=== PATIENT | male | born 1965 | race Caucasian/White ===

== ENCOUNTER 2024-10-26 15:25 | Inpatient (IN) | payer MEDICAID, OTHER ==
[~2024-10-26] VITALS: Ht 170.2 cm; Wt 71.7 kg
[2024-10-26] MEDS: IV NS 0.9% 1,000 ML BAG IV ONE (16:09)
[2024-10-26 16:21] LABS: BASOPHILS % (AUTO) 0.1 % (0.0-2.0); EOSINOPHILS % (AUTO) 0.1 % (0.0-6.0); HEMATOCRIT 33 % (39-51); HEMOGLOBIN 11.1 g/dL (13.5-17.5); LYMPHOCYTES # (AUTO) 0.4 K/uL (0.8-4.8); LYMPHOCYTES % (AUTO) 2.6 % (20.0-44.0); MEAN CORPUSCULAR HEMOGLOBIN 31 PG (26.0-33.0); MEAN CORPUSCULAR HGB CONC 34 g/dl (31.0-36.0); MEAN CORPUSCULAR VOLUME 93 fL (80-96); MONOCYTES # (AUTO) 1.1 K/uL (0.1-1.30); MONOCYTES % (AUTO) 6.4 % (2.0-12.0); NEUTROPHILS # (AUTO) 15.3 K/uL (1.8-8.9); NEUTROPHILS % (AUTO) 90.8 % (43.0-81.0); PLATELET COUNT (AUTO) 243 K/uL (150-450); RED BLOOD CELL COUNT(AUTO) 3.54 MIL/uL (4.5-6.0); RED CELL DISTRIBUTION WIDTH 15.6 % (11.5-15.0); WHITE BLOOD COUNT (AUTO) 16.8 K/uL (4.3-11.0)
[2024-10-26 16:34] LABS: CREATININE 1.5 mg/dL (0.6-1.3); POTASSIUM 3.2 mmol/L (3.5-5.1)
[2024-10-26] MEDS ORDERED: MULT-1275 PO (18:13)
[2024-10-26] MEDS ORDERED: TAMS-12 PO (18:13)
[2024-10-26] MEDS ORDERED: RISP1TAB97 PO (18:13)
[2024-10-26] MEDS ORDERED: APIX5TAB PO (18:13)
[2024-10-26] MEDS ORDERED: ASPI-1169 PO (18:13)
[2024-10-26] MEDS ORDERED: PANT40TA49 PO (18:13)
[2024-10-26] MEDS ORDERED: GABA-532 PO (18:13)
[2024-10-26] MEDS ORDERED: HALO2ORA3 PO (18:13)
[2024-10-26] MEDS ORDERED: ATOR40TA PO (18:13)
[2024-10-26] MEDS ORDERED: LORA-259 PO (18:13)
[2024-10-26] MEDS ORDERED: ACET325T53 PO (18:13)
[2024-10-26] MEDS ORDERED: FOLI0.8T3 PO (18:13)
[2024-10-26] MEDS ORDERED: QUET50TA PO (18:13)
[2024-10-26] MEDS ORDERED: FURO40TA5 PO (18:13)
[2024-10-26] MEDS ORDERED: CEFTRIAXONE 1GM BAG (ER ONLY) 50 ML IV ONE (18:59)
[2024-10-26] MEDS: CEFTRIAXONE 1GM BAG (ER ONLY) 50 ML IV ONE (19:05)
[2024-10-26 19:24] LABS: ALBUMIN 3.1 g/dL (3.4-5.0); BILIRUBIN,DIRECT 0.2 mg/dL (0.0-0.2); BILIRUBIN,TOTAL 0.4 mg/dL (0.2-1.0); TOTAL PROTEIN, SERUM 8.2 g/dL (6.4-8.2)
[2024-10-26 19:28] LABS: LACTIC ACID 1.3 mmol/L (0.4-2.0)
[2024-10-26] MEDS ORDERED: LIDOCAINE 2% JEL UROJET 10 ML MM ONE (19:47)
[2024-10-26 21:23] LABS: APPEARANCE,URINE CLOUDY (CLEAR); COLOR,URINE BROWN (YELLOW)
[2024-10-26 22:17] LABS: RBC,URINE TOO NUMEROUS TO COUN /HPF (0-2)
[2024-10-26 22:18] LABS: BACTERIA,URINE None seen /HPF (None Seen); SQUAMOUS EPITHELIAL CELL,UR 0-2 /HPF (None Seen); WBC,URINE 0-2 /HPF (0-3)
[2024-10-26] MEDS: IV LR 1000 ML 1,000 ML BAG IV ONE (22:40)
[2024-10-26] MEDS ORDERED: QUETIAPINE FUMARATE 25 MG TABLET PO PRN (23:00)
[2024-10-26] MEDS ORDERED: Z GUARD REMEDY 4 OZ OINT TP PRN (23:00)
[2024-10-26] MEDS ORDERED: ONDANSETRON HCL/PF 4 MG/2 ML VIAL IVP PRN (23:00)
[2024-10-26] MEDS ORDERED: CEFEPIME 1 GM VIAL ONE (23:17)
[2024-10-26] MEDS ORDERED: DOXYCYCLINE 100 MG VIAL ONE (23:17)
[2024-10-26] MEDS: POTASSIUM CHLORIDE 10 MEQ TABLET.SA PO ONE (23:26)
[2024-10-26] MEDS ORDERED: HALOPERIDOL ORAL CONC 2 MG/ML BOTTLE PO PRN (23:30)
[2024-10-26] MEDS: CEFEPIME 2 GM in IV D5W 100 ML IV SCH (23:42)
[2024-10-27] MEDS: VANCOMYCIN 1 GM in IV NS 0.9% 250 ML IV ONE
[2024-10-27] MEDS: IV NS 0.9% 1,000 ML IV PRN (00:10)
[2024-10-27 01:03] LABS: BAND % (MANUAL) 1 % (0.0-5.0); LYMPHOCYTES % (MANUAL) 4 % (16-48); MONOCYTES % (MANUAL) 8 % (0-11.0); NEUTROPHILS % (MANUAL) 87 (42-76); PLATELET ESTIMATE ADEQUATE
[2024-10-27] MEDS: DOXYCYCLINE HYCLATE (100 MG) 100 MG TABLET PO SCH (01:09)
[2024-10-27] MEDS: VANCOMYCIN 1 GM /D5W 250 ML PB IV ONE (01:48)
[2024-10-27] MEDS ORDERED: HALOPERIDOL LACTATE 10 MG/5 ML UDC PO PRN (07:00)
[2024-10-27] MEDS: PANTOPRAZOLE 40 MG TABLET.DR PO SCH (07:39)
[2024-10-27] MEDS: MULTIVITAMINS,THERAGRAN 1 UDTAB TABLET PO SCH (08:31)
[2024-10-27] MEDS: TAMSULOSIN 0.4 MG CAP.SR.24H PO SCH (08:31)
[2024-10-27] MEDS: NICOTINE PATCH (7MG) 7 MG PATCH.TD24 TD SCH (08:31)
[2024-10-27] MEDS: risperiDONE 1 MG TABLET PO SCH (08:31)
[2024-10-27] MEDS: GABAPENTIN 100 MG CAPSULE PO SCH (08:32)
[2024-10-27] MEDS: FOLIC ACID 1 MG TABLET PO SCH (08:32)
[2024-10-27] MEDS: CEFEPIME 2 GM in IV D5W 100 ML IV SCH (11:02)
[2024-10-27 12:10] VITALS: BP 89/60; TEMP 99.2; O2SAT 95
[2024-10-27] MEDS: VANCOMYCIN 750 MG in IV D5W 250 ML IV SCH (13:22)
[2024-10-27] MEDS: SOD FERRIC GLUC 125 MG in IV NS 0.9% 100 ML IV SCH (14:30)
[2024-10-27 15:37] LABS: BASOPHILS % (AUTO) 0.3 % (0.0-2.0); EOSINOPHILS # (AUTO) 0.1 K/uL (0.0-0.7); HEMATOCRIT 29 % (39-51); HEMOGLOBIN 9.9 g/dL (13.5-17.5); LYMPHOCYTES # (AUTO) 0.6 K/uL (0.8-4.8); LYMPHOCYTES % (AUTO) 5.2 % (20.0-44.0); MEAN CORPUSCULAR HEMOGLOBIN 33 PG (26.0-33.0); MEAN CORPUSCULAR HGB CONC 35 g/dl (31.0-36.0); MEAN CORPUSCULAR VOLUME 94 fL (80-96); MONOCYTES # (AUTO) 0.7 K/uL (0.1-1.30); MONOCYTES % (AUTO) 6.4 % (2.0-12.0); NEUTROPHILS # (AUTO) 9.4 K/uL (1.8-8.9); NEUTROPHILS % (AUTO) 87.1 % (43.0-81.0); PLATELET COUNT (AUTO) 171 K/uL (150-450); RED BLOOD CELL COUNT(AUTO) 3.01 MIL/uL (4.5-6.0); RED CELL DISTRIBUTION WIDTH 15.7 % (11.5-15.0); WHITE BLOOD COUNT (AUTO) 10.8 K/uL (4.3-11.0)
[2024-10-27 16:06] LABS: CALCIUM, SERUM 8.2 mg/dL (8.5-10.1); CREATININE 1.5 mg/dL (0.6-1.3); POTASSIUM 3.7 mmol/L (3.5-5.1)
[2024-10-27 16:23] VITALS: BP 90/63; TEMP 98.6; O2SAT 94
[2024-10-27 20:00] VITALS: BP 97/56; TEMP 98.1; O2SAT 97
[2024-10-27] MEDS: ATORVASTATIN 40 MG TABLET PO SCH (21:55)
[2024-10-28 07:00] LABS: BASOPHILS # (AUTO) 0.1 K/uL (0.0-0.2); BASOPHILS % (AUTO) 0.6 % (0.0-2.0); EOSINOPHILS # (AUTO) 0.3 K/uL (0.0-0.7); EOSINOPHILS % (AUTO) 3.7 % (0.0-6.0); HEMATOCRIT 27 % (39-51); HEMOGLOBIN 9.2 g/dL (13.5-17.5); LYMPHOCYTES # (AUTO) 0.8 K/uL (0.8-4.8); LYMPHOCYTES % (AUTO) 8.7 % (20.0-44.0); MEAN CORPUSCULAR HEMOGLOBIN 32 PG (26.0-33.0); MEAN CORPUSCULAR HGB CONC 34 g/dl (31.0-36.0); MEAN CORPUSCULAR VOLUME 95 fL (80-96); MONOCYTES % (AUTO) 11.4 % (2.0-12.0); NEUTROPHILS # (AUTO) 6.7 K/uL (1.8-8.9); NEUTROPHILS % (AUTO) 75.6 % (43.0-81.0); PLATELET COUNT (AUTO) 170 K/uL (150-450); RED BLOOD CELL COUNT(AUTO) 2.87 MIL/uL (4.5-6.0); RED CELL DISTRIBUTION WIDTH 15.5 % (11.5-15.0); WHITE BLOOD COUNT (AUTO) 8.9 K/uL (4.3-11.0)
[2024-10-28 07:30] VITALS: BP 101/52; TEMP 99; O2SAT 90
[2024-10-28 07:35] LABS: CALCIUM, SERUM 8.6 mg/dL (8.5-10.1); CREATININE 1.3 mg/dL (0.6-1.3); MAGNESIUM 1.5 mg/dL (1.8-2.4); PHOSPHORUS 3.2 mg/dL (2.5-4.9); POTASSIUM 3.2 mmol/L (3.5-5.1)
[2024-10-28] MEDS: MAGNESIUM OXIDE 400 MG TABLET PO ONE (09:17)
[2024-10-28] MEDS: POTASSIUM CHLORIDE 20 MEQ TAB.PRT.SR PO SCH (10:04)
[2024-10-28] MEDS: THERAHONEY GEL 1.5 OZ TUBE TP SCH (10:04)
[2024-10-28] MEDS ORDERED: HALOPERIDOL DECANOATE IM 100 MG/ML AMPUL IM PRN (23:00)
[2024-10-28] MEDS: HALOPERIDOL LACTATE INJ 5 MG/ML VIAL ONE (23:28)
[2024-10-28] MEDS ORDERED: HALOPERIDOL DECANOATE IM 100 MG/ML AMPUL IM ONE (23:30)
[2024-10-29] MEDS: HALOPERIDOL LACTATE INJ 5 MG/ML VIAL IM ONE (00:10)
[2024-10-29 06:00] VITALS: BP 115/63; O2SAT 97
[2024-10-29] MEDS: risperiDONE 1 MG TABLET PO SCH (12:02)
[2024-10-29 16:00] VITALS: BP 109/74; TEMP 98.2; O2SAT 96
[2024-10-29] MEDS: LORAZEPAM 1 MG TABLET PO PRN (16:27)
[2024-10-29 20:00] VITALS: BP 119/54; TEMP 98.1; O2SAT 94
[2024-10-30] MEDS: ACETAMINOPHEN 325 MG TABLET PO PRN (01:13)
[2024-10-30 06:57] LABS: CALCIUM, SERUM 9.2 mg/dL (8.5-10.1); CREATININE 1.2 mg/dL (0.6-1.3); MAGNESIUM 1.8 mg/dL (1.8-2.4); PHOSPHORUS 4.5 mg/dL (2.5-4.9); POTASSIUM 3.8 mmol/L (3.5-5.1)
[2024-10-30 06:58] LABS: BASOPHILS % (AUTO) 0.5 % (0.0-2.0); EOSINOPHILS # (AUTO) 0.3 K/uL (0.0-0.7); EOSINOPHILS % (AUTO) 4.1 % (0.0-6.0); HEMATOCRIT 30 % (39-51); HEMOGLOBIN 10.2 g/dL (13.5-17.5); LYMPHOCYTES # (AUTO) 1.3 K/uL (0.8-4.8); LYMPHOCYTES % (AUTO) 15.3 % (20.0-44.0); MEAN CORPUSCULAR HEMOGLOBIN 32 PG (26.0-33.0); MEAN CORPUSCULAR HGB CONC 34 g/dl (31.0-36.0); MEAN CORPUSCULAR VOLUME 94 fL (80-96); MONOCYTES % (AUTO) 12.3 % (2.0-12.0); NEUTROPHILS # (AUTO) 5.6 K/uL (1.8-8.9); NEUTROPHILS % (AUTO) 67.8 % (43.0-81.0); PLATELET COUNT (AUTO) 202 K/uL (150-450); RED BLOOD CELL COUNT(AUTO) 3.18 MIL/uL (4.5-6.0); RED CELL DISTRIBUTION WIDTH 15.1 % (11.5-15.0); WHITE BLOOD COUNT (AUTO) 8.2 K/uL (4.3-11.0)
[2024-10-30] MEDS ORDERED: LEVO500T90 PO (10:55)
[2024-10-30] MEDS ORDERED: RISP1TAB7 PO (10:56)
[2024-10-30] MEDS ORDERED: NICO-760 TD (10:56)
[2024-10-30] MEDS ORDERED: COLL30OI TP (10:56)
[2024-10-30 14:51] VITALS: TEMP 98.1
== END 2024-10-30 17:33 | DRG 720 ==
LOC: ER 15:34 → TELE 21:03 → MED 10-27 09:14
PROVIDERS: ADMIT Nurse Practitioner Family; ATTEND Nurse Practitioner Acute Care
DX: A41.89 Other specified sepsis (principal); J18.9 Pneumonia, unspecified organism; N17.9 Acute kidney failure, unspecified; E44.1 Mild protein-calorie malnutrition; I70.268 Atherosclerosis of native arteries of extremities with gangrene, other extremity; D62 Acute posthemorrhagic anemia; E87.1 Hypo-osmolality and hyponatremia; E88.09 Other disorders of plasma-protein metabolism, not elsewhere classified; I50.9 Heart failure, unspecified; E86.1 Hypovolemia; Z79.01 Long term (current) use of anticoagulants; Z79.82 Long term (current) use of aspirin; Z79.899 Other long term (current) drug therapy; F39 Unspecified mood [affective] disorder; G31.84 Mild cognitive impairment of uncertain or unknown etiology; F17.200 Nicotine dependence, unspecified, uncomplicated; E87.6 Hypokalemia; Z91.199 Patient's noncompliance with other medical treatment and regimen due to unspecified reason; N13.30 Unspecified hydronephrosis; T45.515A Adverse effect of anticoagulants, initial encounter; Y92.9 Unspecified place or not applicable; N30.91 Cystitis, unspecified with hematuria; T14.8XXA Other injury of unspecified body region, initial encounter; X58.XXXA Exposure to other specified factors, initial encounter
CPT/HCPCS: 36415; 71045-TC; 80048-TC; 80076-TC; 80202-TC; 81001; 83605-TC; 83735-TC; 84100-TC; 85025-TC; 87040-TC; 87081-TC; A4223; G0378; J0692; J0696; J1630; J1631; J2916; J3370; J3371; J3490; J7030; J7050; J7060; J7120